=== PATIENT | male | born 1940 | race Caucasian/White ===

== ENCOUNTER → 2017-04-27 | Outpatient (CLI) | payer MEDICARE ==
[2017-04-27 17:08] LABS: Blood Urea Nitrogen 18 mg/dL (9-20); Non-African American GFR(MDRD) >60 (>60 ml/min/1.73 sqM)
--- NOTE | 2017-04-27 18:15 | CT ---
EXAMINATION TYPE: CT chest w con DATE OF EXAM: 04/27/2017 COMPARISON: NONE HISTORY: Chest congestion x 3 weeks. Cough and abnormal cxr. CT DLP: 428.30 mGycm. Automated Exposure Control for Dose Reduction was Utilized. TECHNIQUE: CT scan of the thorax is performed following with IV Contrast, patient injected with 100 mL of Omnipaque 300. FINDINGS: LUNGS: The lungs are grossly clear, there is no concerning parenchymal mass or nodule identified. No suspicious groundglass opacity or consolidation is seen bilaterally. There is minimal left basilar li near scarring or atelectasis near diaphragm. There is no pleural effusion or pneumothorax seen. The tracheobronchial tree is patent. MEDIASTINUM: There are no greater than 1 cm hilar or mediastinal lymph nodes. No cardiomegaly or pe ricardial effusion is seen. Coronary artery calcification is present which is noted marker for coron radha artery disease. There is fairly moderate mixed plaque in the descending thoracic aorta. OTHER: Small degree of bilateral gynecomastia is noted. Liver is diffusely low dense suggesting fatty infiltration. There is simple appearing 3.5 cm cyst posterior right hepatic lobe. There is subcentim eter lesion left hepatic lobe on axial image 52 too small to further characterize. There are several simple appearing cysts throughout the visualized left kidney partially imaged. IMPRESSION: No significant acute or chronic pulmonary process.
== END | disposition home or self-care (01) ==
LOC: RADCTMAIN 16:36
PROVIDERS: ATTEND Family Medicine
DX: R05 Cough (principal); R91.8 Other nonspecific abnormal finding of lung field
CPT/HCPCS: 82565; 84520; 71260; 36415; Q9967

== ENCOUNTER → 2020-02-07 | Outpatient (CLI) | payer MEDICARE ==
--- NOTE | 2020-02-07 16:33 | XR ---
EXAMINATION TYPE: XR Hip Complete RT DATE OF EXAM: 02/07/2020 COMPARISON: NONE HISTORY: Pain in right hip TECHNIQUE: Two views of the right hip are obtained. FINDINGS: Two views of right hip show no acute fracture or dislocation. The right hip joint is normal. No osseo us destructive lesions. The overlying soft tissue is unremarkable. IMPRESSION: There is no acute fracture or dislocation in the right hip.
== END | disposition home or self-care (01) ==
LOC: RADXRMAIN 15:13
PROVIDERS: ATTEND Nurse Practitioner Family
DX: M25.552 Pain in left hip (principal)
CPT/HCPCS: 73502

== ENCOUNTER → 2020-06-13 | Outpatient (CLI) | payer MEDICARE ==
--- NOTE | 2020-06-13 16:11 | CONS ---
CONSULTATION DATE OF SERVICE: 06/13/2020 This patient is an 79-year-old gentleman who has been evaluated in the sleep center for possible obstructive sleep apnea-hypopnea syndrome. HISTORY OF PRESENT ILLNESS/SLEEP-WAKE EVALUATION: Patient's usual sleep schedule is from midnight or 1 a.m. until 8 or 8:30 a.m. No problems with falling asleep. No TV in bedroom. Patient usually sleeps on the side or back position. He snores. He wakes up from sleep about 3 times with nocturia, episodes of palpitation, and possibly stops breathing during sleep. In the morning the patient wakes up tired, worries about his sleep, has episodes of anxiety. [place] Sleepiness Scale is 3. PAST MEDICAL HISTORY: His past medical history is positive for hypertension and episodes of palpitations. PAST SURGICAL HISTORY: Laminectomy L4-L5, knee laparoscopic surgery. MEDICATIONS: 1. Tamsulosin 0.4 mg once a day. 2. Amlodipine 10 mg once a day. 3. Losartan 100 mg once a day. 4. Pravastatin 10 mg once a day. 5. Aspirin 325 mg once a day. FAMILY HISTORY: Stroke in his grandfather, diabetes in his grandmother. REVIEW OF SYSTEMS: Multiple awakenings from sleep, tiredness after awakening, episodes of anxiety. PHYSICAL EXAMINATION: GENERAL: A pleasant gentleman without distress. VITAL SIGNS: BP 143/79, HR 66, RR 15, height 5 feet 7-1/2 inches, weight 196. BMI is 30.2. Oxygen saturation at room air 94%. HEENT: PERRLA, EOMI. Evaluation of oropharynx showed tongue protrudes midline. Moderately low position of soft palate. Mallampati II to III. NECK: Supple. No JVD. Thyroid is not palpable. Neck measures 15 inches in circumference. LUNGS: Clear to percussion and to auscultation. Good air exchange. No wheezing or rhonchi. HEART: S1, S2 regular. No murmurs, gallops or rubs. ABDOMEN: Slightly obese. EXTREMITIES: No clubbing or cyanosis. MULE DRIVER: Awake, alert, and oriented X3. Cranial nerves 2 to 7 intact. There is no fasciculation or atrophy. noted. No focal deficits observed. IMPRESSION: 1. Snoring, multiple awakenings from sleep with nocturia, episodes of sleepiness during the day, episodes of palpitations during sleep time, moderately low position of soft palate; obstructive sleep apnea-hypopnea syndrome. 2. Hypertension. 3. Episodes of palpitations. 4. Status post laminectomy, L4-L5. 5. Status post laparoscopic surgery of the knee. 6. Hyperlipidemia. PLAN: 1. Polysomnography for evaluation of patient's breathing during sleep. 2. CPAP/BiPAP titration if sleep study confirms obstructive sleep apnea-hypopnea syndrome. 3. Preferable position during sleep on the side. 4. No driving if patient feels any sleepiness. 5. I will see patient for follow up visit to explain results of testing and following plan. Thank you very much for referring this patient for consultation. Sincerely, Oscar Flanagan MD, PhD, FAASM Diplomat of [employer] [employer] [employer] Benefits Consultant of [facility] [place] MMODL / TAMIKAN: [id number] /
== END | disposition home or self-care (01) ==
LOC: SLEEP 14:18
PROVIDERS: ATTEND Internal Medicine
DX: G47.33 Obstructive sleep apnea (adult) (pediatric) (principal); I10 Essential (primary) hypertension; E78.5 Hyperlipidemia, unspecified; R00.2 Palpitations; Z98.890 Other specified postprocedural states; Z79.82 Long term (current) use of aspirin; Z79.899 Other long term (current) drug therapy; Z79.891 Long term (current) use of opiate analgesic
CPT/HCPCS: 99211

== ENCOUNTER → 2022-05-25 | Outpatient (CLI) | payer MEDICARE ==
[2022-05-25 14:31] LABS: HCT 41.9 % (39.6-50.0); MCH 29.9 pg (27.0-32.0); MCHC 33.4 g/dL (32.0-37.0); MCV 89.3 fL (80.0-97.0); Mean Platelet Volume 11.3 fL (9.5-12.2); NRBC Per 100 WBC 0 /100 WBCS (0.0-0.0); Platelet Count 240 X 10*3/uL (140-440); RBC 4.69 X 10*6/uL (4.40-5.60); RDW 13.2 % (11.5-14.5); WBC 7.33 X 10*3/uL (4.50-10.00)
[2022-05-25 18:28] LABS: African American GFR (CKD) 91.6 (60.0-200.0); Anion Gap 9.7 mmol/L (10.00-18.00); Blood Urea Nitrogen 20.8 mg/dL (9.0-27.0); Carbon Dioxide 28.4 mmol/L (20.0-27.5); Potassium 4.7 mmol/L (3.5-5.5)
== END | disposition home or self-care (01) ==
LOC: LABPAT 10:42
PROVIDERS: ATTEND Internal Medicine Clinical Cardiac Electrophysiology
DX: Z01.812 Encounter for preprocedural laboratory examination (principal); I49.3 Ventricular premature depolarization; I35.8 Other nonrheumatic aortic valve disorders
CPT/HCPCS: 80051; 82565; 84520; 85027

== ENCOUNTER 2022-05-28 10:18 | Day surgery (SDC) | payer MEDICARE ==
[~2022-05-28 10:18] MED LIST: LACTATED RINGERS 1,000 ML IV SCH; SODIUM CHLORIDE 0.9% 1,000 ML IV SCH
[2022-05-28] MEDS ORDERED: MIDAZOLAM 2 MG/2 ML VIAL ONE (13:30)
[2022-05-28] MEDS ORDERED: ISOPROTERENOL 250 MCG/1.25 ML SYR IV ONE (13:30)
[2022-05-28] MEDS ORDERED: fentaNYL (PF) 50 MCG/ML 2 ML AMP ONE (13:30)
[2022-05-28] MEDS ORDERED: KETOROLAC 15 MG/ML 1 ML VIAL ONE (13:30)
[2022-05-28] MEDS ORDERED: PROPOFOL 10 MG/ML 20 ML VIAL IV ONE (13:30)
[2022-05-28] MEDS ORDERED: HEPARIN SODIUM,PORCINE 5,000 UNIT/ML 1 ML VIAL ONE (13:30)
[2022-05-28] MEDS ORDERED: LIDOCAINE 1% INJ 10MG/ML (30 ML VIAL-PF) SQ ONE (14:07)
[2022-05-28] MEDS ORDERED: HEPARIN SODIUM (1,000 UNIT/ML) 1,000 UNIT in SODIUM CHLORIDE 0.9% 1,000 ML IRRIGATION ONE (14:30)
[2022-05-28] MEDS ORDERED: NITROGLYCERIN OINT 1 INCH/GM PACKET TOPICAL ONE (14:37)
[2022-05-28] MEDS ORDERED: IOPAMIDOL-370 50ML BTL INJ ONE (16:16)
[2022-05-28] MEDS ORDERED: LACTATED RINGERS 1,000 ML IV ONE (16:31)
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
[2022-05-28] MEDS ORDERED: ACETAMINOPHEN TAB 325 MG TAB PO PRN (16:39)
[2022-05-28] MEDS ORDERED: ACETAMINOPHEN IV (For NPO) 1,000 MG in EMPTY BAG 1 BAG IVPB ONE (16:39)
--- NOTE | 2022-05-28 17:01 | P.EPPROC ---
- EP Procedure Note Electrophysiology Procedure Note: Diagnosis Frequent PVCs, high PVC burden of 15-30%, symptomatic Delta waves-like configuration at the onset of greater than 50% of the QRS QRS width 140 ms Left bundle branch block morphology with Transition between V1-V2 Normal stress test, normal LV size and function, mild aortic stenosis Final diagnosis Frequent PVCs from deep mid myocardium very close to the His bundle area Detailed mapping of the right side of the septum and His bundle and right bundle area Detailed mapping of the aortic root including the right coronary and noncoronary cusps Detailed mapping of the LVOT Mapping of the anterior interventricular vein at its origin High risk of AV block at the site, no ablation performed Details Patient was brought to the EP lab in a fasting state. Written informed consent was obtained prior to the procedure Patient was experiencing frequent PVCs He was lightly sedated and venous and arterial accesses were obtained in both groins Femoral artery sheath was placed. Venous sheaths were placed in the right and left femoral veins Hemodynamic monitoring was performed through the procedure Diagnostic catheters mapping catheters were placed in the high right atrium, His bundle, coronary sinus, anterior interventricular vein, right ventricle Mapping Catheters were also placed in the left ventricle, outflow tract as well as aortic cusps specifically the noncoronary in the right coronary cusps IV heparin administered Intracardiac echo was performed 3-DMapping was performed The PVCs were mapped PVC morphology was as follows: Left bundle branch block morphology with transition in V2 and a delta waves-like configuration in all precordial leads Positive in II, biphasic in lead 3, negative in aVR, positive in aVL and upright in aVF The earliest PVC site was mapped to the His bundle area on both sides of the septum Sometimes the earliest site was in the left side and at other times it was in the right side Pace mapping at the site had a very poor match of only 50% consistent with a deep myocardial focus in the His bundle area with poor pace maps endocardially Pentaray catheter was placed in the aorta and the aortic root The noncoronary cusp in the right cusps were mapped. The PVC electrograms was late Pentaray catheter was then placed in the LVOT area The PVC originated from the His bundle area and sometimes would be early from the right side, at least 20 ms from the onset of the QRS At other times the left-sided PVC area was earliest site This was consistent with a deep myocardial focus as was suggested on the twelve- lead EKG with exit sometimes on the right side and exit sometimes of the left- sided The endocardial pace maps was suboptimal consistent with the deep focus Junctional beats, HIS extrasystole with a right bundle branch block morphology were noted intermittently Isuprel was infused at high output, and then withdrawn Isuprel suppressed the arrhythmia but PVCs came back during recovery Sedation suppressed the PVCs and therefore he was kept awake for most of the procedure Sinus cycle length 10-5 ms, MD interval 290 ms, QRS 104 ms, QT interval 442 ms AH 82 ms and HV interval 35 ms Sinus node recovery times at 600, 504 100 ms were 1061, 1055 and 1199 ms. VA Wenckebach block 600 ms at baseline AV node Wenckebach block 310 ms Slow pathway noted antegradely at 380 ms, no inducible SVT On Isuprel, VA Wenckebach block improved to 300 ms AV node Wenckebach block at 310 ms with evidence of antegrade slow pathway conduction but without induction of AV connie reentry Sheaths removed Vascade closure for the venous access sites Angio-Seal for the femoral artery site
[2022-05-28] MEDS ORDERED: HYDROmorphone 0.5 MG/0.5 ML SYRINGE IVP PRN (18:06)
[2022-05-28] MEDS: ASPIRIN 81 MG PO SCH (20:50)
[2022-05-28] MEDS: FLECAINIDE 50 MG TAB PO SCH (20:50)
[2022-05-28] MEDS ORDERED: LOSARTAN 50 MG TAB PO SCH (21:00)
[2022-05-29 07:25] VITALS: BP 136/85; PULSE 63; RESP 20; TEMP 98.2
--- NOTE | 2022-05-29 08:12 | P.EPPROC ---
- EP Procedure Note Electrophysiology Procedure Note: Patient is doing well. His blood pressure is well controlled. No chest discomfort dizziness or lightheadedness He has no groin discomfort On examination his blood pressure is normal Groin is healed well no hematoma Heart sounds S1 and S2 are normal Ejection systolic murmur, soft Lungs are clear no rhonchi no crackles Bilateral lower extremity edema, right greater than left, patient or amlodipine Impression Very frequent PVCs the high PVC burden with a delta wave-like configuration con sistent with a deep focus These PVCs mapped to the mid left ventricular myocardium, deep focus virtually on the His bundle The right side and the left side of the septum the mapped The aortic cusp was mapped, specific in the noncoronary cusp This was a deep focus based on pace mapping and activation mapping, likely on the septum just below the His bundle In future one option could be mechanical ablation with a left bundle screw-in lead At this time we will start flecainide 50 mrem twice daily He has an underlying right bundle branch block and a mildly prolonged [place] interval and we will watch for any bradycardia arrhythmias and for efficacy Urine go home today in follow-up with us in a week Follow-up Holter monitor will be ordered as an outpatient
--- NOTE | 2022-05-29 08:20 | P.DS ---
Providers Attending physician: Mor Wills Primary care physician: [facility] Course: Patient is doing well with her was blood pressure is still elevated Attending examination is normal No JVD Normal heart sounds are regular Breath sounds are clear Basic site is healed well line minimal soakage Impression Complete heart block with severe bradycardia Biventricular pacemaker with left bundle pacing Today's twelve-lead EKG shows a QRS of 150 ms right bundle branch block morpholo gy, QRS pattern At lower outputs, a typical right bundle branch block is seen Backup RV pacing Hemoglobin 13.6 BUN 34 and creatinine 1.44 Saline IV today, likely hypoperfusion with severe bradycardia Start lisinopril 20 mg by mouth daily for hypertension management Follow-up with Dr. Florence in a week Follow-up blood pressure and renal function on lisinopril Plan - Discharge Summary Discharge Rx Participant: No New Discharge Prescriptions: New RX: Flecainide [Tambocor] 50 mg PO Q12HR #180 tablet No Action Aspirin EC [Ecotrin Low Dose] 81 mg PO BID Triamterene/Hydrochlorothiazid [Triamterene-Hctz 37.5-25 mg Tb] 1 tab PO DAILY Tamsulosin [Flomax] 0.4 mg PO DAILY amLODIPine [Norvasc] 10 mg PO DAILY RX: Losartan Potassium 100 mg PO HS Discharge Medication List Aspirin EC [Ecotrin Low Dose] 81 mg PO BID 12/15/21 [History] RX: Losartan Potassium 100 mg PO HS 12/15/21 [History] Tamsulosin [Flomax] 0.4 mg PO DAILY 12/15/21 [History] Triamterene/Hydrochlorothiazid [Triamterene-Hctz 37.5-25 mg Tb] 1 tab PO DAILY 12/15/21 [History] amLODIPine [Norvasc] 10 mg PO DAILY 12/15/21 [History] RX: Flecainide [Tambocor] 50 mg PO Q12HR #180 tablet 05/28/22 [Rx] Follow up Appointment(s)/Referral(s): Mor Wills MD [STAFF PHYSICIAN] - 1 Week (Follow-up with Carlota Caballero in a week Flecainide 50 mg twice daily in addition to other medications) Activity/Diet/Wound Care/Special Instructions: Post EP study - Ablation instructions 1. Keep access sites dry for 2 days. 2. No heavy lifting or straining for 2 days. 3. Avoid bending the hips repeatedly for 2 days. 4. You may go up and down stairs slowly Call if the following is noted 1. Bleeding, increasing swelling or pain at the access sites. 2. Increasing chest discomfort, especially upon taking a deep breath. 3. Increasing shortness of breath, at rest or with exertion. 4. Undue cough / phlegm 5. Difficulty or pain while swallowing. 6. Pain or change in color in the extremities. 7. Fever, chills, rigors. 8. Increasing headache or neurologic symptoms. 9. Dizziness, fainting, palpitations Discharge Disposition: HOME SELF-CARE
[2022-05-29] MEDS: FLECAINIDE 50 MG TAB PO SCH (08:27)
[2022-05-29] MEDS: ASPIRIN 81 MG PO SCH (08:27)
[2022-05-29] MEDS ORDERED: amLODIPine 10 MG TAB PO SCH (09:00)
[2022-05-29] MEDS ORDERED: TRIAMTERENE-HCTZ 37.5-25MG 1 EACH TAB PO SCH (09:00)
[2022-05-29] MEDS ORDERED: TAMSULOSIN 0.4 MG CAP.ER.24H PO SCH (09:00)
[2022-05-29 09:27] LABS: ALT 17 U/L (10-49); AST 22 U/L (14-35); African American GFR (CKD) 80.3 (60.0-200.0); Albumin 4.2 g/dL (3.8-4.9); Alkaline Phosphatase 78 U/L (41-126); Blood Urea Nitrogen 15.3 mg/dL (9.0-27.0); Chloride 101 mmol/L (96-109); Glucose 107 mg/dL (70-110); Non-African American GFR(CKD) 69.3 (60.0-200.0); Potassium 4.2 mmol/L (3.5-5.5); Sodium 137 mmol/L (135-145); Total Protein 6.2 g/dL (6.2-8.2)
== END 2022-05-29 10:04 | disposition home or self-care (01) ==
LOC: CATHEP 10:18 → 6NMEDSUR 16:09 → CATHEP 05-29 10:04
PROVIDERS: ATTEND Internal Medicine Clinical Cardiac Electrophysiology
DX: R00.2 Palpitations (principal); I10 Essential (primary) hypertension; I35.0 Nonrheumatic aortic (valve) stenosis; E78.5 Hyperlipidemia, unspecified; I44.2 Atrioventricular block, complete; R07.89 Other chest pain; Z79.899 Other long term (current) drug therapy; Z85.828 Personal history of other malignant neoplasm of skin; Z86.16 Personal history of COVID-19
CPT/HCPCS: 93623; 93620; 80053; 84443; 83735; C1759; C1760 ×2; C1894; C1769 ×2; C1730 ×3; C1731; J2250; J1644 ×2; J2001; J3010; J1885; J2704; J1170; Q9967

== ENCOUNTER 2023-01-03 11:05 | Inpatient (IN) | payer MEDICARE ==
[2023-01-03] MEDS ORDERED: SODIUM CHLORIDE 0.9% 500 ML 500 ML IV STA (11:29)
--- NOTE | 2023-01-03 11:35 | ED ---
General Adult HPI - General Chief complaint: Shortness of Breath Stated complaint: SOB Time Seen by Provider: 01/03/23 11:25 Source: patient, RN notes reviewed, old records reviewed Mode of arrival: ambulatory Limitations: no limitations - History of Present Illness Initial comments: This is a 82-year-old male presents emergency department stating that he is feeling more short of breath especially with exertion. Patient states she also notices pulses upper abdominal 150. Patient states she has a history of a slow heartbeat but not a fast heartbeat. Patient denies any chest pain. Patient denies any discomfort is just. Patient denies any recent fever chills or cough. Patient states he is on flecainide. Patient denies any abdominal pain patient denies nausea vomiting. - Related Data Home Medications Medication Instructions Recorded Confirmed Aspirin EC [Ecotrin Low Dose] 81 mg PO BID 12/15/21 05/28/22 Losartan Potassium 100 mg PO HS 12/15/21 05/28/22 Tamsulosin [Flomax] 0.4 mg PO DAILY 12/15/21 05/28/22 Triamterene/Hydrochlorothiazid 1 tab PO DAILY 12/15/21 05/28/22 [Triamterene-Hctz 37.5-25 mg Tb] amLODIPine [Norvasc] 10 mg PO DAILY 12/15/21 05/28/22 Previous Rx's Medication Instructions Recorded Flecainide [Tambocor] 50 mg PO Q12HR #180 tablet 05/28/22 Allergies Allergy/AdvReac Type Severity Reaction Status Date / Time acetaminophen AdvReac Unknown Verified 01/03/23 11:10 [From Tylenol-Codeine #3] codeine AdvReac Unknown Verified 01/03/23 11:10 [From Tylenol-Codeine #3] morphine AdvReac Itching Verified 01/03/23 11:10 Review of Systems ROS Statement: Those systems with pertinent positive or pertinent negative responses have been documented in the HPI. ROS Other: All systems not noted in ROS Statement are negative. Past Medical History Past Medical History: Atrial Flutter Additional Past Medical History / Comment(s): PVCs History of Any Multi-Drug Resistant Organisms: None Reported Past Surgical History: No Surgical Hx Reported Past Psychological History: No Psychological Hx Reported Smoking Status: Never smoker Past Alcohol Use History: Unable to Obtain Past Drug Use History: Unable to Obtain General Exam - General Exam Comments Initial Comments: GENERAL: Patient is well-developed and well-nourished. Patient is nontoxic and well- hydrated and is in mild distress. ENT: Neck is soft and supple. No significant lymphadenopathy is noted. Oropharynx is clear. Moist mucous membranes. Neck has full range of motion without eliciting any pain. EYES: The sclera were anicteric and conjunctiva were pink and moist. Extraocular movements were intact and pupils were equal round and reactive to light. Eyelids were unremarkable. PULMONARY: Unlabored respirations. Good breath sounds bilaterally. No audible rales rho nchi or wheezing was noted. CARDIOVASCULAR: Patient's heart rate is about 160 beats a minute and irregular. ABDOMEN: Soft and nontender with normal bowel sounds. SKIN: Skin is clear with no lesions or rashes and otherwise unremarkable. NEUROLOGIC: Patient is alert and oriented x3. Cranial nerves II through XII are grossly intact. Motor and sensory are also intact. Normal speech, volume and content. Symmetrical smile. MUSCULOSKELETAL: Normal extremities with adequate strength and full range of motion. No lower extremity swelling or edema. No calf tenderness. LYMPHATICS: No significant lymphadenopathy is noted PSYCHIATRIC: Normal psychiatric evaluation. Limitations: no limitations Course Vital Signs 01/03/23 11:07 Temperature 97.5 F L Pulse Rate 71 Respiratory 20 Rate Blood Pressure 102/70 O2 Sat by Pulse 99 Oximetry Medical Decision Making - Medical Decision Making EKG was interpreted by myself it shows a sinus tachycardia at 1 25 bpm MI interval is on a 65 QRS is under QT interval 333 QTC is 47. Patient's EKG shows some slight ST segment elevation inferiorly. Dr. Perez was sent the EKG for review. Second EKG was done because the patient's heart rate was faster and appeared to be irregular EKG was interpreted by myself shows atrial fibrillation with rapid ventricular response at 150 bpm QRS is 166 QT interval 340 QTC is 426. Patient's EKG shows a right bundle branch block Was pt. sent in by a medical professional or institution (, [facility], [facility], urgent care, hospital, or jail...) When possible be specific @ -[No] Did you speak to anyone other than the patient for history (EMS, parent, family, police, friend...)? What history was obtained from this source @ -[No] Did you review nursing and triage notes (agree or disagree)? Why? @ -[I reviewed and agree with nursing and triage notes] Were old charts reviewed (outside hosp., previous admission, EMS record, old EK G, old radiological studies, urgent care reports/EKG's, jail records)? Report findings @ -I reviewed prior EKGs prior lab work and Parkinson's patient Differential Diagnosis (chest pain, altered mental status, abdominal pain women, abdominal pain men, vaginal bleeding, weakness, fever, dyspnea, syncope, headache, dizziness, GI bleed, back pain, seizure, CVA, palpatations, mental health, musculoskeletal)? @ -Differential Dyspnea: Coronary syndrome, arrhythmia, tamponade, asthma, COPD, pulmonary embolism, pneumonia, pneumothorax, pulmonary effusion, anaphylaxis, diabetic ketoacidosis, flailed chest, pulmonary contusion, diaphragmatic rupture, anemia, neuromuscular, this is not meant to be an all-inclusive list. EKG interpreted by me (3pts min.). @ -[As above] X-rays interpreted by me (1pt min.). @ -Chest x-ray shows no acute abnormality CT interpreted by me (1pt min.). @ -[None done] U/S interpreted by me (1pt. min.). @ -[None done] What testing was considered but not performed or refused? (CT, X-rays, U/S, labs)? Why? @ -[None] What meds were considered but not given or refused? Why? @ -[None] Did you discuss the management of the patient with other professionals (pro fessionals i.e. , PA, [facility], lab, RT, psych nurse, social worker assistant, member of the legislative council, teacher, defence force senior officer, case monitor)? Give summary @ -Poke with Dr. Perez he saw the EKGs and wanted the patient started on amiodarone and gave the patient amiodarone bolus of 150 and then put the patient on amiodarone drip and started the patient on heparin. I spoke with Dr. Spears he agreed to admit the patient I admitted the patient remaining orders I consulted cardiology Was smoking cessation discussed for >3mins.? @ -[No] Was critical care preformed (if so, how long)? @ -35 Minutes Were there social determinants of health that impacted care today? How? (Homelessness, low income, unemployed, alcoholism, drug addiction, transportation, low edu. Level, literacy, decrease access to med. care, alf, rehab)? @ -[No] Was there de-escalation of care discussed even if they declined (Discuss DNR or withdrawal of care, Hospice)? DNR status @ -[No] What co-morbidities impacted this encounter? (DM, HTN, Smoking, COPD, CAD, Cancer, CVA, ARF, Chemo, Hep., AIDS, mental health diagnosis, sleep apnea, morbid obesity)? @ -[None] Was patient admitted / discharged? Hospital course, mention meds given and route, prescriptions, significant lab abnormalities, going to OR and other pertinent info. @ -Patient came in with atrial fibrillation with rapid ventricular response at the patient amiodarone and amiodarone drip after I spoke with Dr. Perez. I spoke with Dr. Spears he agreed to admit the patient admitted the patient I started the patient heparin as well as I consulted cardiology. Undiagnosed new problem with uncertain prognosis? @ -[No] Drug Therapy requiring intensive monitoring for toxicity (Heparin, Nitro, Insulin, Cardizem)? @ -[No] Were any procedures done? @ -[No] Diagnosis/symptom? @ -Atrial fibrillation with rapid ventricular response Acute, or Chronic, or Acute on Chronic? @ -Acute Uncomplicated (without systemic symptoms) or Complicated (systemic symptoms)? @ -Complicated Side effects of treatment? @ -[No] Exacerbation, Progression, or Severe Exacerbation? @ -[No] Poses a threat to life or bodily function? How? (Chest pain, [place], [place], pneumonia, PE, COPD, DKA, ARF, appy, cholecystitis, CVA, Diverticulitis, Homicidal, Suicidal, threat to staff... and all critical care pts) @ -Yes this can lead to poor perfusion and end organ dysfunction - Lab Data Result diagrams: 01/03/23 11:34 01/03/23 11:34 Lab Results 01/03/23 01/03/23 01/03/23 Range/Units 11:34 11:34 11:34 WBC 9.1 (3.8-10.6) k/uL RBC 5.54 (4.30-5.90) m/uL Hgb 16.3 (13.0-17.5) gm/dL Hct 48.1 (39.0-53.0) % MCV 86.7 (80.0-100.0) fL MCH 29.4 (25.0-35.0) pg MCHC 33.9 (31.0-37.0) g/dL RDW 13.6 (11.5-15.5) % Plt Count 247 (150-450) k/uL MPV 8.1 Neutrophils % 73 % Lymphocytes % 18 % Monocytes % 5 % Eosinophils % 2 % Basophils % 1 % Neutrophils # 6.6 (1.3-7.7) k/uL Lymphocytes # 1.6 (1.0-4.8) k/uL Monocytes # 0.5 (0-1.0) k/uL Eosinophils # 0.2 (0-0.7) k/uL Basophils # 0.0 (0-0.2) k/uL PT 10.3 (9.0-12.0) sec INR 1.0 (<1.2) APTT 23.4 (22.0-30.0) sec D-Dimer 0.60 H (<0.60) mg/L FEU Sodium 137 (137-145) mmol/L Potassium 4.1 (3.5-5.1) mmol/L Chloride 100 (98-107) mmol/L Carbon Dioxide 22 (22-30) mmol/L Anion Gap 15 mmol/L BUN 34 H (9-20) mg/dL Creatinine 1.33 H (0.66-1.25) mg/dL Est GFR (CKD-EPI)AfAm 57 (>60 ml/min/1.73 sqM) Est GFR (CKD-EPI)NonAf 49 (>60 ml/min/1.73 sqM) Glucose 136 H (74-99) mg/dL Plasma Lactic Acid Christopher (0.7-2.0) mmol/L Calcium 10.1 (8.4-10.2) mg/dL Magnesium 2.2 (1.6-2.3) mg/dL Total Bilirubin 0.8 (0.2-1.3) mg/dL AST 40 (17-59) U/L ALT 28 (4-49) U/L Alkaline Phosphatase 65 (38-126) U/L Troponin I (0.000-0.034) ng/mL Total Protein 7.7 (6.3-8.2) g/dL Albumin 4.8 (3.5-5.0) g/dL 01/03/23 01/03/23 Range/Units 11:34 11:34 WBC (3.8-10.6) k/uL RBC (4.30-5.90) m/uL Hgb (13.0-17.5) gm/dL Hct (39.0-53.0) % MCV (80.0-100.0) fL MCH (25.0-35.0) pg MCHC (31.0-37.0) g/dL RDW (11.5-15.5) % Plt Count (150-450) k/uL MPV Neutrophils % % Lymphocytes % % Monocytes % % Eosinophils % % Basophils % % Neutrophils # (1.3-7.7) k/uL Lymphocytes # (1.0-4.8) k/uL Monocytes # (0-1.0) k/uL Eosinophils # (0-0.7) k/uL Basophils # (0-0.2) k/uL PT (9.0-12.0) sec INR (<1.2) APTT (22.0-30.0) sec D-Dimer (<0.60) mg/L FEU Sodium (137-145) mmol/L Potassium (3.5-5.1) mmol/L Chloride (98-107) mmol/L Carbon Dioxide (22-30) mmol/L Anion Gap mmol/L BUN (9-20) mg/dL Creatinine (0.66-1.25) mg/dL Est GFR (CKD-EPI)AfAm (>60 ml/min/1.73 sqM) Est GFR (CKD-EPI)NonAf (>60 ml/min/1.73 sqM) Glucose (74-99) mg/dL Plasma Lactic Acid Christopher 1.3 (0.7-2.0) mmol/L Calcium (8.4-10.2) mg/dL Magnesium (1.6-2.3) mg/dL Total Bilirubin (0.2-1.3) mg/dL AST (17-59) U/L ALT (4-49) U/L Alkaline Phosphatase (38-126) U/L Troponin I 0.020 (0.000-0.034) ng/mL Total Protein (6.3-8.2) g/dL Albumin (3.5-5.0) g/dL Critical Care Time Critical Care Time: Yes Total Critical Care Time: 35 Disposition Clinical Impression: Atrial fibrillation with rapid ventricular response Disposition: ADMITTED IP TO THIS HOSP Referrals: Staci Gongora MD [REFERRING] - 1-2 days Time of Disposition: 14:20
[2023-01-03 11:47] LABS: Basophils % (A) 1 %; Eosinophils # (A) 0.2 k/uL (0-0.7); Eosinophils % (A) 2 %; HCT 48.1 % (39.0-53.0); HGB 16.3 gm/dL (13.0-17.5); Lymphocytes # (A) 1.6 k/uL (1.0-4.8); Lymphocytes % (A) 18 %; MCH 29.4 pg (25.0-35.0); MCHC 33.9 g/dL (31.0-37.0); MCV 86.7 fL (80.0-100.0); Mean Platelet Volume 8.1; Monocytes # (A) 0.5 k/uL (0-1.0); Monocytes % (A) 5 %; Neutrophils # (A) 6.6 k/uL (1.3-7.7); Neutrophils % (A) 73 %; Platelet Count 247 k/uL (150-450); RBC 5.54 m/uL (4.30-5.90); RDW 13.6 % (11.5-15.5); WBC 9.1 k/uL (3.8-10.6)
[2023-01-03 12:00] LABS: ALT 28 U/L (4-49); African American GFR (CKD) 57 (>60 ml/min/1.73 sqM); Anion Gap 15 mmol/L; Blood Urea Nitrogen 34 mg/dL (9-20); Calcium 10.1 mg/dL (8.4-10.2); Carbon Dioxide 22 mmol/L (22-30); Chloride 100 mmol/L (98-107); Glucose 136 mg/dL (74-99); Non-African American GFR(CKD) 49 (>60 ml/min/1.73 sqM); Sodium 137 mmol/L (137-145); Total Bilirubin 0.8 mg/dL (0.2-1.3)
[2023-01-03 12:01] LABS: Potassium 4.1 mmol/L (3.5-5.1)
[2023-01-03 12:02] LABS: AST 40 U/L (17-59); Albumin 4.8 g/dL (3.5-5.0); Alkaline Phosphatase 65 U/L (38-126); Magnesium 2.2 mg/dL (1.6-2.3); Total Protein 7.7 g/dL (6.3-8.2)
--- NOTE | 2023-01-03 12:12 | XR ---
EXAMINATION TYPE: XR chest 2V DATE OF EXAM: 01/03/2023 COMPARISON: None HISTORY: 82 year-old male shortness of breath, difficulty breathing TECHNIQUE: AP and lateral views FINDINGS: Heart upper limits of normal in size. Atherosclerotic arch calcifications. Pulmonary vasculature with in normal limits. No consolidation or pleural effusion. IMPRESSION: Borderline heart size. No acute cardiopulmonary process.
[2023-01-03 12:16] LABS: Partial Thromboplastin Time 23.4 sec (22.0-30.0); Prothrombin Time 10.3 sec (9.0-12.0)
[2023-01-03] MEDS ORDERED: DEXTROSE 5% IN WATER 100 ML with AMIODARONE 150 MG IV ONE (12:18)
[2023-01-03] MEDS ORDERED: AMIODARONE 360 MG in DEXTROSE 5% IN WATER 200 ML IV ONE ×2 (12:19)
[2023-01-03] MEDS ORDERED: HEPARIN SODIUM 1,000 UN/ML (10ML VL) IV ONE (14:02)
[2023-01-03] MEDS ORDERED: HEPARIN SOD,PORK IN 0.45% NACL 25,000 UNIT in 0.45% NACL 1 250ML.BAG IV SCH (14:15)
[2023-01-03] MEDS ORDERED: SODIUM CHLORIDE 0.9% 1,000 ML IV ONE (14:24)
[2023-01-03] MEDS ORDERED: ONDANSETRON 4 MG/2 ML VIAL IVP PRN (16:23)
[2023-01-03] MEDS ORDERED: LORazepam 0.5 MG TAB PO PRN (16:23)
[2023-01-03] MEDS ORDERED: ACETAMINOPHEN TAB 325 MG TAB PO PRN (16:23)
[2023-01-03] MEDS ORDERED: MELATONIN 3 MG TABLET PO PRN (16:23)
[2023-01-03] MEDS ORDERED: NALOXONE 0.4 MG/ML 1 ML VIAL IV PRN (16:23)
--- NOTE | 2023-01-03 16:35 | P.HPIM ---
History of Present Illness H&P Date: 01/03/23 Chief Complaint: Heart racing This is a pleasant 82-year-old patient who follows with Dr. Chavez. 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 Chronic stable medical conditions include osteo-arthritis, hypertension, BPH,. Patient the past as a symptomatic frequent PVCs. May 2022 was attempted ablation by Dr. Mor Yen. Not successful. Patient since then has been on flecainide. This morning patient really became dizzy and weak with no palpitations. Took his pulse could not for the same. Decided to come to the ER. EKG showed atrial flutter/fibrillation with a rapid ventricular rate. Was started on IV heparin and IV amiodarone the ER. Cartilage was consulted. Patient's son and at the bedside. Review of systems: GEN.: Tired EYES: None HEENT: None NECK: None RESPIRATORY: As above CARDIOVASCULAR: As above GASTROINTESTINAL: None GENITOURINARY: None MUSCULOSKELETAL: Joint pains LYMPHATICS: None HEMATOLOGICAL: None PSYCHIATRY: None NEUROLOGICAL: None Past medical history to include: Symptomatic PVCs, atrial flutter, hypertension, BPH Social history: . No smoking or alcohol. Physical examination: VITAL SIGNS: 97.5, 71, 20, 102/70, 99% room air GENERAL: BMI 30.9, declining in bed slightly short of breath. EYES: Pupils equal. Conjunctiva normal. HEENT: External appearance of nose and ears normal, oral cavity grossly normal. NECK: JVD not raised; masses not palpable. HEART: Sounds regular; no edema. LUNGS: Respiratory rate normal; clear to auscultation. ABDOMEN: Soft, nontender, liver spleen not palpable, no masses palpable. PSYCH: Alert and oriented x3; mood and affect normal. MUSCULOSKELETAL:No Clubbing/cyanosis;muscles-grossly intact. OA NEUROLOGICAL: Cranial nerves grossly intact; no facial asymmetry, power and sensation grossly intact. LYMPHATICS: No lymph nodes palpable in the axilla and neck INVESTIGATIONS, reviewed in the clinical context: White count 9.1 hemoglobin sitting 0.3 platelets 247 sodium 137 potassium 4.1 BUN 34 creatinine 1.33 Troponin I 0.20 EKG tracing personally reviewed by me-atrial fibrillation. Right bundle branch block pattern Chest x-ray film personally reviewed by me-unremarkable Assessment and plan: -New onset of atrial fibrillation with rapid ventricular rate. IV heparin. IV amiodarone. Cardiology consulted. -BMI 30.9 Weight loss measures -Essential hypertension Currently blood pressure running low because of rapid rate. Hold off anti- hypertensives -BPH Flomax -IV heparin monitoring Follow PTT Care was discussed with the patient and the and the son at the bedside. Questions answered. Cardiac consulted. Check thyroid function Past Medical History Past Medical History: Atrial Flutter Additional Past Medical History / Comment(s): PVCs History of Any Multi-Drug Resistant Organisms: None Reported Past Surgical History: No Surgical Hx Reported Past Psychological History: No Psychological Hx Reported Smoking Status: Never smoker Past Alcohol Use History: Unable to Obtain Past Drug Use History: Unable to Obtain Medications and Allergies Home Medications Medication Instructions Recorded Confirmed Type Losartan Potassium 100 mg PO HS 12/15/21 01/03/23 History Tamsulosin [Flomax] 0.4 mg PO DAILY 12/15/21 01/03/23 History Triamterene/Hydrochlorothiazid 1.5 tab PO DAILY 12/15/21 01/03/23 History [Triamterene-Hctz 37.5-25 mg Tb] amLODIPine [Norvasc] 10 mg PO DAILY 12/15/21 01/03/23 History Aspirin 81.25 mg PO BID 01/03/23 01/03/23 History Flecainide [Tambocor] 25 mg PO Q12HR 01/03/23 01/03/23 History Allergies Allergy/AdvReac Type Severity Reaction Status Date / Time codeine AdvReac Nausea, Verified 01/03/23 14:52 [From Tylenol-Codeine #3] vomiting, dizziness morphine AdvReac Itching of Verified 01/03/23 14:52 lips/mouth Physical Exam Vitals: Vital Signs Temp Pulse Resp BP Pulse Ox 01/03/23 11:07 97.5 F L 71 20 102/70 99 Intake and Output 01/03/23 01/03/23 01/03/23 06:59 14:59 22:59 Other: Weight 92.079 kg Results CBC & Chem 7: 01/03/23 11:34 01/03/23 11:34 Labs: Abnormal Lab Results - Last 24 Hours (Table) 01/03/23 01/03/23 Range/Units 11:34 11:34 D-Dimer 0.60 H (<0.60) mg/L FEU BUN 34 H (9-20) mg/dL Creatinine 1.33 H (0.66-1.25) mg/dL Glucose 136 H (74-99) mg/dL
[2023-01-03] MEDS: AMIODARONE 450 MG in DEXTROSE 5% IN WATER 250 ML IV SCH ×2 (18:32)
[2023-01-03] MEDS: ASPIRIN 81 MG PO SCH (20:09)
[2023-01-03] MEDS ORDERED: FLECAINIDE 50 MG TAB PO SCH (21:00)
[2023-01-04] MEDS: AMIODARONE 450 MG in DEXTROSE 5% IN WATER 250 ML IV SCH ×2 (04:12)
[2023-01-04 08:22] VITALS: RESP 17
[2023-01-04] MEDS: ASPIRIN 81 MG PO SCH (08:48)
[2023-01-04] MEDS ORDERED: TAMSULOSIN 0.4 MG CAP.ER.24H PO SCH (09:00)
[2023-01-04] MEDS ORDERED: FLECAINIDE 50 MG TAB PO SCH (10:30)
[2023-01-04] MEDS ORDERED: APIXABAN 5 MG TAB PO SCH (10:45)
[2023-01-04] MEDS ORDERED: amLODIPine 5 MG TAB PO SCH (10:45)
--- NOTE | 2023-01-04 10:57 | P.CRDCN ---
History of Present Illness History of present illness: HISTORY OF PRESENT ILLNESS: This is a 82-year-old male with a past medical history significant for PVCs, hypertension, carotid arthrosclerosis, and mild aortic stenosis. Patient follows in the office with Dr. Wills. We have been asked to see the patient in consul tation for atrial fibrillation. Patient examined at the bedside. Patient states that he underwent an attempted PVC ablation in May 2022. He states he was placed on flecainide afterwards and has been doing well with no issues. He states yesterday he began to feel dizzy and short of breath. He states that he went to take his pulse and it felt very faint and rapid. He denies having any palpitations. Patient presented to the ER for further evaluation. EKG reveals atrial flutter versus atrial fibrillation. He was placed on IV heparin and IV amiodarone. He is maintaining sinus mechanism this morning. * EKG reveals atrial flutter versus atrial fibrillation * Chest xray borderline heart size. No acute cardiopulmonary process. * Laboratory data: WBC 9.1. Hemoglobin 16.3. Platelet count 247. D-dimer 0.60. Sodium 137. Potassium 4.1. BUN 34. Creatinine 1.33. Troponin negative 1. TSH 2.710. * Current home cardiac medications include flecainide 25 mg twice a day, losartan 100 mg at night, aspirin 81.25 mg twice a day, Norvasc 10 mg daily, and Triamterene-hydrochlorothiazide 37.5-25mg daily REVIEW OF SYSTEMS: At the time of my exam: CONSTITUTIONAL: Denies fever or chills. HEENT: Denies blurred vision, vision changes, or eye pain. Denies hemoptysis CARDIOVASCULAR: Denies chest pain. Denies orthopnea. Denies PND. Denies palpitations RESPIRATORY: Denies shortness of breath. GASTROINTESTINAL: Denies abdominal pain. Denies nausea or vomiting. HEMATOLOGIC: Denies bleeding disorders. GENITOURINARY: Denies any blood in urine. SKIN: Denies pruitis. Denies rash. PHYSICAL EXAM: VITAL SIGNS: Reviewed. GENERAL: Well-developed in no acute distress. HEENT: Head is normocephalic. Pupils are equal, round. Sclerae anicteric. Mucous membranes of the mouth are moist. Neck supple. No JVD or thyromegaly LUNGS: Respirations even and unlabored. Lungs essentially clear to auscultation bilaterally. HEART: Regular rate and rhythm. S1 and S2 heard. Systolic murmur noted ABDOMEN: Soft. Nondistended. Nontender. EXTREMITIES: Normal range of motion. No clubbing or cyanosis. Peripheral pulses intact. No lower extremity edema NEUROLOGIC: Awake and alert. Oriented x 3. ASSESSMENT: Dizziness New-onset typical atrial flutter versus atrial fibrillation with RVR, currently maintaining sinus mechanism History of attempted PVC ablation in May 2022 Hypertension Carotid arthrosclerosis Mild aortic stenosis PLAN: Discontinue IV amio and IV heparin Begin Eliquis 5mg BID Resume flecainide at increased dose of 50 mg twice a day Resume amlodipine at a lower dose of 5 mg daily Resume losartan at a decreased dose of 50 mg at night Discontinue Triamterene-hydrochlorothiazide Patient may be discharged home this afternoon and follow up with Dr. Wills on an outpatient basis Nurse practitioner note has been reviewed by physician. Signing provider agrees with the documented findings, assessment, and plan of care. Past Medical History Past Medical History: Atrial Flutter Additional Past Medical History / Comment(s): PVCs. head trauma in 1979 History of Any Multi-Drug Resistant Organisms: None Reported Past Surgical History: No Surgical Hx Reported Past Psychological History: No Psychological Hx Reported Smoking Status: Never smoker Past Alcohol Use History: Unable to Obtain Past Drug Use History: Unable to Obtain - Past Family History Father Family Medical History: Cancer Mother Family Medical History: Cancer Medications and Allergies Home Medications Medication Instructions Recorded Confirmed Type Losartan Potassium 100 mg PO HS 12/15/21 01/03/23 History Tamsulosin [Flomax] 0.4 mg PO DAILY 12/15/21 01/03/23 History Triamterene/Hydrochlorothiazid 1.5 tab PO DAILY 12/15/21 01/03/23 History [Triamterene-Hctz 37.5-25 mg Tb] amLODIPine [Norvasc] 10 mg PO DAILY 12/15/21 01/03/23 History Aspirin 81.25 mg PO BID 01/03/23 01/03/23 History Flecainide [Tambocor] 25 mg PO Q12HR 01/03/23 01/03/23 History Allergies Allergy/AdvReac Type Severity Reaction Status Date / Time codeine AdvReac Nausea, Verified 01/03/23 14:52 [From Tylenol-Codeine #3] vomiting, dizziness morphine AdvReac Itching of Verified 01/03/23 14:52 lips/mouth Physical Exam Vitals: Vital Signs Temp Pulse Pulse Resp BP BP Pulse Ox 01/04/23 04:00 98.3 F 68 18 119/76 94 L 01/04/23 02:00 120 H 18 01/04/23 00:00 120 H 18 105/70 95 01/03/23 20:00 97.9 F 110 H 16 109/66 96 01/03/23 17:16 129 H 17 107/62 97 01/03/23 16:36 98.7 F 129 H 18 115/89 98 01/03/23 16:00 124 H 19 118/103 94 L 01/03/23 15:00 129 H 20 97/76 96 01/03/23 14:00 124 H 18 116/86 94 L 01/03/23 13:00 122 H 18 101/78 95 01/03/23 11:07 97.5 F L 71 20 102/70 99 Intake and Output 01/03/23 01/04/23 01/04/23 22:59 06:59 14:59 Intake Total 174.311 161.114 Output Total 200 750 Balance -25.689 -588.886 Intake: Intake, IV Titration 64.311 161.114 Amount Amiodarone 450 mg In 161.114 Dextrose 5% in Water 250 ml @ 0.5 MG/MIN 16.667 mls/hr IV .Q15H [facility] Rx#: [id number] Heparin Sod,Pork in 0.45% 64.311 NaCl 25,000 unit In 0.45 % NaCl 1 250ml.bag @ 10.8 UNITS/KG/HR 9.945 mls/hr IV .Q24H [facility] Rx#: [id number] Oral 110 Output: Urine 200 750 Other: Weight 92.079 kg Results 01/03/23 11:34 01/03/23 11:34 Cardiac Enzymes 01/03/23 01/03/23 Range/Units 11:34 11:34 AST 40 (17-59) U/L Troponin I 0.020 (0.000-0.034) ng/mL Coagulation 01/03/23 01/03/23 01/04/23 Range/Units 11:34 20:46 04:18 PT 10.3 (9.0-12.0) sec APTT 23.4 38.8 H 51.4 H (22.0-30.0) sec CBC 01/03/23 Range/Units 11:34 WBC 9.1 (3.8-10.6) k/uL RBC 5.54 (4.30-5.90) m/uL Hgb 16.3 (13.0-17.5) gm/dL Hct 48.1 (39.0-53.0) % Plt Count 247 (150-450) k/uL Comprehensive Metabolic Panel 01/03/23 Range/Units 11:34 Sodium 137 (137-145) mmol/L Potassium 4.1 (3.5-5.1) mmol/L Chloride 100 (98-107) mmol/L Carbon Dioxide 22 (22-30) mmol/L BUN 34 H (9-20) mg/dL Creatinine 1.33 H (0.66-1.25) mg/dL Glucose 136 H (74-99) mg/dL Calcium 10.1 (8.4-10.2) mg/dL AST 40 (17-59) U/L ALT 28 (4-49) U/L Alkaline Phosphatase 65 (38-126) U/L Total Protein 7.7 (6.3-8.2) g/dL Albumin 4.8 (3.5-5.0) g/dL Current Medications Generic Name Dose Route Start Last Admin Trade Name Freq PRN Reason Stop Dose Admin Acetaminophen 650 mg 01/03/23 16:23 Acetaminophen Tab 325 Mg Tab PO Q6HR PRN Mild Pain or Fever > 100.5 Aspirin 81 mg 01/03/23 21:00 01/03/23 20:09 Aspirin 81 Mg PO 81 mg BID [facility] Administration Heparin Sodium/Sodium Chloride 250 mls @ 9.945 mls/hr 01/03/23 14:15 01/03/23 21:34 25,000 unit/ Sodium Chloride IV 12.8 units/kg/hr .Q24H [facility] 11.786 mls/hr Titration Protocol 10.8 UNITS/KG/HR Lorazepam 0.5 mg 01/03/23 16:23 Lorazepam 0.5 Mg Tab PO Q6HR PRN Anxiety Melatonin 3 mg 01/03/23 16:23 Melatonin 3 Mg Tablet PO HS PRN Insomnia Naloxone HCl 0.2 mg 01/03/23 16:23 Naloxone 0.4 Mg/Ml 1 Ml Vial IV Q2M PRN Opioid Reversal Ondansetron HCl 4 mg 01/03/23 16:23 Ondansetron 4 Mg/2 Ml Vial IVP Q8HR PRN Nausea And Vomiting Tamsulosin HCl 0.4 mg 01/04/23 09:00 Tamsulosin 0.4 Mg Cap.Er.24h PO DAILY [facility] [place] Intake and Output 01/03/23 01/04/23 01/04/23 22:59 06:59 14:59 Intake Total 174.311 161.114 Output Total 200 750 Balance -25.929 -638.766 Intake: Intake, IV Titration 64.311 161.114 Amount Amiodarone 450 mg In 161.114 Dextrose 5% in Water 250 ml @ 0.5 MG/MIN 16.667 mls/hr IV .Q15H [facility] [place] Rx#: [id number] Heparin Sod,Pork in 0.45% 64.311 NaCl 25,000 unit In 0.45 % NaCl 1 250ml.bag @ 10.8 UNITS/KG/HR 9.945 mls/hr IV .Q24H [facility] [place] Rx#: [id number] Oral 110 Output: Urine 200 750 Other: Weight 92.079 kg 01/03/23 11:34 01/03/23 11:34
[2023-01-04 15:40] VITALS: BP 131/73; PULSE 63; TEMP 97.8
--- NOTE | 2023-01-04 19:07 | P.EPCON ---
Electrophysiology Consult - EP Consult Electrophysiology Consult: This is Dr. Wills dictating an electrophysiology consult on this patient The patient was interviewed and examined IMPRESSION / ASSESSMENT: 82 male patient presenting with sudden onset of shortness of breath and presyncope and palpitations First 12-lead EKG showed an atrial tachycardia, with RVR A subsequent EKG showed degeneration to atrial fibrillation with RVR History of very frequent PVCs in the setting of normal coronary arteries and normal LV function These PVCs originated from the distal His bundle and hence were not tolerated for ablation Instead he was treated with flecainide Therefore his atrial fibrillation occurred on flecainide therapy and was very symptomatic His TSH is normal electrolytes and normal History of hypertension Very mild coronary artery disease with preserved systolic function PLAN: He has now converted to sinus rhythm on the higher dose of flecainide and is awaiting discharge He is also on ELIQUIS now At a detailed discussion with him regarding the management of atrial fibrillation. Since he has already broken through on flecainide I would recommend an EP study and ablation for atrial fibrillation and for atrial tachycardia especially since he is so symptomatically Risks and benefits were discussed He understands the pros and cons of A. fib ablation since his has had 1 before. He has also had a diagnostic EP study in the mapping procedure a few months back himself Defer knee surgery for at least 4 months No operative procedures for the 3 months after A. fib ablation Patient instructed not to stop ELIQUIS before the ablation or for 3 months after the ablation He will hold flecainide for 2 days prior to the procedure HPI Patient was at home and he had a sudden onset of shortness of breath and felt extremely dizzy and strange. He had to sit down because he thought he was passed out. His took his pulse and could not contract since it was going very fast In about 10 minutes or so he felt very uneasy and lightheaded and therefore came to the hospital His first 12-lead EKG in the hospital showed an atrial tachycardia with RVR On telemetry in the ER his heart is "200 beats a minute Subsequently he degenerated into atrial fibrillation has been documented twelve- lead EKG He has been on flecainide for a different reason, for suppression of PVCs that originate in the ventricular muscle close to the distal His bundle Therefore ablation was not performed. Therefore he is had episodes of atrial fibrillation atrial tachycardia on flecainide ROS: No fever chills or rigors, no cough, phlegm or expectoration, no nausea, vomiting or diarrhea, no hematuria, dysuria, no musculoskeletal complaints, no strokes or seizures, no skin lesions. EXAMINATION: Blood pressure 127/76. His mercury pulse rate in the 60s at this time he is in sinus rhythm afebrile Breath sounds are clear no rhonchi no crackles Normal heart sounds normal S1 normal S2 Lying comfortably in bed no orthopnea PND No lower extremity edema REVIEW OF LABS, ECG & MEDICAL DATA normal white count, normal hemoglobin, normal platelet count of 247,000 Normal electrolytes Creatinine 1.3 Normal TSH line normal troponin
--- NOTE | 2023-01-04 20:12 | P.DS ---
Providers Date of admission: 01/03/23 14:24 Expected date of discharge: 01/04/23 Attending physician: Francisco Spears Consults: 01/03/23 14:24 Consult Physician Urgent Consulting Provider: Jeff Perez Consult Reason/Comments: A. 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 Chronic stable medical conditions include osteo-arthritis, hypertension, BPH,. Patient the past as a symptomatic frequent PVCs. May 2022 was attempted ablation by Dr. Mor Yen. Not successful. Patient since then has been on flecainide. This morning patient really became dizzy and weak with no palpitations. Took his pulse could not for the same. Decided to come to the ER. EKG showed atrial flutter/fibrillation with a rapid ventricular rate. Was started on IV heparin and IV amiodarone the ER. Cartilage was consulted. Patient's son and at the bedside. January 04: Patient seen by Dr. Mor Yen from EP. Diagnosed of atrial tachycardia with a rapid rate. Also patient changed to atrial fibrillation. In sinus rhythm this morning. Secondary is being increased to 50 mg twice a day. Amlodipine 5 mg's been added. Diuretic discontinued. Discussed with patient. He'll follow-up with Dr. Odell in a week's time. Patient will likely get a EP study with ablation for atrial fibrillation and atrial tachycardia as an outpatient. Patient on flecainide 2 days prior to the procedure. Otherwise patient feeling well this morning. Past medical history to include: Symptomatic PVCs, atrial flutter, hypertension, BPH Social history: . No smoking or alcohol. Physical examination: VITAL SIGNS: 97.8, 63, 17, 131/73, 96% room air GENERAL: BMI 30.9, declining in bed slightly short of breath. EYES: Pupils equal. Conjunctiva normal. HEENT: External appearance of nose and ears normal, oral cavity grossly normal. NECK: JVD not raised; masses not palpable. HEART: First seconds are normal; no edema. LUNGS: Respiratory rate normal; clear to auscultation. ABDOMEN: Soft, nontender, liver spleen not palpable, no masses palpable. PSYCH: Alert and oriented x3; mood and affect normal. MUSCULOSKELETAL:No Clubbing/cyanosis;muscles-grossly intact. OA INVESTIGATIONS, reviewed in the clinical context: TSH 2.7 White count 9.1 hemoglobin sitting 0.3 platelets 247 sodium 137 potassium 4.1 BUN 34 creatinine 1.33 Troponin I 0.20 EKG tracing personally reviewed by me-atrial fibrillation. Right bundle branch block pattern Chest x-ray film personally reviewed by me-unremarkable Assessment and plan: -Paroxysmal atrial fibrillation with rapid ventricular rate., Back in sinus rhythm Flecainide. 50 mg twice a day. Follow outpatient ablation -Atrial tachycardia with a rapid rate on presentation Flecainide. For outpatient ablation -BMI 30.9 Weight loss measures -Essential hypertension Amlodipine 5 mg daily. Cozaar 50 mg daily at bedtime -Elevated creatinine. Diuretics held. For repeat BMP in 1 week. -BPH Flomax -IV heparin monitoring Follow PTT Disposition: Home Labs: BMP in 1 week Plan - Discharge Summary Discharge Rx Participant: No New Discharge Prescriptions: New Losartan [Cozaar] 50 mg PO HS #90 tab Apixaban [Eliquis] 5 mg PO BID #60 tab amLODIPine [Norvasc] 5 mg PO DAILY #90 tab Flecainide [Tambocor] 50 mg PO Q12HR #180 tab Continue Tamsulosin [Flomax] 0.4 mg PO DAILY Discontinued Triamterene/Hydrochlorothiazid [Triamterene-Hctz 37.5-25 mg Tb] 1.5 tab PO DAILY Aspirin 81.25 mg PO BID amLODIPine [Norvasc] 10 mg PO DAILY Losartan Potassium 100 mg PO HS Flecainide [Tambocor] 25 mg PO Q12HR Discharge Medication List Tamsulosin [Flomax] 0.4 mg PO DAILY 12/15/21 [History] Apixaban [Eliquis] 5 mg PO BID #60 tab 01/04/23 [Rx] Flecainide [Tambocor] 50 mg PO Q12HR #180 tab 01/04/23 [Rx] Losartan [Cozaar] 50 mg PO HS #90 tab 01/04/23 [Rx] amLODIPine [Norvasc] 5 mg PO DAILY #90 tab 01/04/23 [Rx] Follow up Appointment(s)/Referral(s): Mor Wills MD [STAFF PHYSICIAN] - 1 Week (Wednesday, January 11 11:15) Mendel Chavez MD [Primary Care Provider] - 1 Week (January 12, 11:00) Patient Instructions/Handouts: A-fib (Atrial Fibrillation) (DC) Discharge Disposition: HOME SELF-CARE
[2023-01-04] MEDS ORDERED: LOSARTAN 50 MG TAB PO SCH (21:00)
[2023-01-04] MEDS ORDERED: NON FORMULARY DRUG (Losartan Potassium [Losartan Potassium] 100 MG Tablet) PO SCH (21:00)
[2023-01-05] MEDS ORDERED: TRIAMTERENE-HCTZ 37.5-25MG 1 EACH TAB PO SCH (09:00)
== END 2023-01-04 16:43 | disposition home or self-care (01) | DRG 310 ==
LOC: EC 11:05 → 3SCARD 14:24
PROVIDERS: ADMIT Hospitalist; ATTEND Hospitalist
DX: I48.3 Typical atrial flutter (principal); I49.3 Ventricular premature depolarization; N40.0 Benign prostatic hyperplasia without lower urinary tract symptoms; Z71.3 Dietary counseling and surveillance; I10 Essential (primary) hypertension; I45.10 Unspecified right bundle-branch block; I47.1 Supraventricular tachycardia; I48.0 Paroxysmal atrial fibrillation; M19.90 Unspecified osteoarthritis, unspecified site; Z68.30 Body mass index [BMI] 30.0-30.9, adult; Z79.899 Other long term (current) drug therapy; Z87.828 Personal history of other (healed) physical injury and trauma; I65.29 Occlusion and stenosis of unspecified carotid artery; Z88.5 Allergy status to narcotic agent; Z79.82 Long term (current) use of aspirin
CPT/HCPCS: 36415; 71046; 80053; 83605; 83735; 84443; 84484; 85025; 85379; 85610; 85730; 93005; 94760; 96361; 96365; 96375; 99291

== ENCOUNTER 2023-02-18 08:51 | Day surgery (SDC) | payer MEDICARE ==
[2023-02-16 13:39] VITALS: BMI 31.0
[2023-02-18] MEDS ORDERED: SODIUM CHLORIDE 0.9% 1,000 ML IV ONE (10:45)
[2023-02-18] MEDS ORDERED: SUCCINYLCHOLINE CHLORIDE 200 MG/10 ML VIAL IV ONE (11:22)
[2023-02-18] MEDS ORDERED: ATROPINE SULFATE 0.4 MG/ML 1 ML VIAL ONE (11:22)
[2023-02-18] MEDS ORDERED: HEPARIN SODIUM,PORCINE 5,000 UNIT/ML 1 ML VIAL ONE (11:22)
[2023-02-18] MEDS ORDERED: PROPOFOL 10 MG/ML 20 ML VIAL IV ONE (11:22)
[2023-02-18] MEDS ORDERED: HEPARIN SODIUM,PORCINE 10,000 UNIT/ML 1 ML VIAL ONE (11:22)
[2023-02-18] MEDS ORDERED: LIDOCAINE 4% LTA KIT (4 ML) TOPICAL ONE (11:22)
[2023-02-18] MEDS ORDERED: ISOPROTERENOL 250 MCG/1.25 ML SYR IV ONE (11:22)
[2023-02-18] MEDS ORDERED: LIDOCAINE 1% INJ 10MG/ML (20 ML MDV) ONE (11:42)
[2023-02-18] MEDS ORDERED: HEPARIN SOD,PORK IN 0.45% NACL 25,000 UNIT in 0.45% NACL 1 250ML.BAG IV ONE (11:59)
[2023-02-18] MEDS ORDERED: LIDOCAINE 1% INJ 10MG/ML (20 ML MDV) SQ ONE (12:00)
[2023-02-18] MEDS ORDERED: IOPAMIDOL-370 100ML BTL INJ ONE (14:18)
[2023-02-18] MEDS ORDERED: HEPARIN SODIUM (1,000 UNIT/ML) 1,000 UNIT in SODIUM CHLORIDE 0.9% 1,000 ML IRRIGATION ONE (14:20)
[2023-02-18] MEDS ORDERED: ACETAMINOPHEN TAB 325 MG TAB PO PRN (15:26)
--- NOTE | 2023-02-18 15:31 | P.HPCAR ---
History of Present Illness This is Dr. Wills dictating an H/P on this patient The patient was interviewed and examined IMPRESSION / ASSESSMENT: Paroxysmal atrial fibrillation with RVR Paroxysmal atrial tachycardia with RVR with right bundle branch block aberrancy Hypertension PVCs, suppressed on flecainide Mild aortic stenosis Left anterior fascicular block Sick Sinus Syndrome Preserved LV size and systolic function on echo PLAN: A. fib ablation Diagnoses EP study to induce any atrial tachycardia and mapping and ablation according Continue with his HPI Patient was admitted to the hospital with atrial fibrillation with RVR and atrial tachycardia with a right bundle branch block. He denies any fever chills cough expectoration In the last few days with flecainide he has not had any palpitations ROS: No fever chills or rigors, no cough, phlegm or expectoration, no nausea, vomiting or diarrhea, no hematuria, dysuria, no musculoskeletal complaints, no strokes or seizures, no skin lesions. EXAMINATION: On examination his heart sounds are normal breath sounds are clear Blood pressures elevated Systolic ejection murmur. Explosiveness No JVD Mild bilateral lower extremity edema REVIEW OF LABS, ECG & MEDICAL DATA TSH normal Patient is on amlodipine losartan and flecainide as well as ELIQUIS Physical Exam Vitals: Intake and Output 02/18/23 02/18/23 02/18/23 06:59 14:59 22:59 Intake Total 799 Balance 799 Intake: IV 799 Past Medical History Past Medical History: Atrial Fibrillation, Atrial Flutter, Hearing Disorder / Deafness, Hyperlipidemia, Hypertension, Osteoarthritis (OA) Additional Past Medical History / Comment(s): HX PVCs. 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 Bilateral hearing aid use. History of Any Multi-Drug Resistant Organisms: None Reported Past Surgical History: Back Surgery Additional Past Surgical History / Comment(s): 1986 laminectomy, attempted cardiac ablation for PVC's, colonoscopies. Past Anesthesia/Blood Transfusion Reactions: No Reported Reaction Past Psychological History: No Psychological Hx Reported Smoking Status: Never smoker Past Alcohol Use History: None Reported Past Drug Use History: None Reported - Past Family History Father Family Medical History: Cancer Mother Family Medical History: Cancer Physical Examination Intake and Output 02/18/23 02/18/23 02/18/23 06:59 14:59 22:59 Intake Total 799 Balance 799 Intake: IV 799 Results Current Medications Generic Name Dose Route Start Last Admin Trade Name Freq PRN Reason Stop Dose Admin Acetaminophen 650 mg 02/18/23 15:26 Acetaminophen Tab 325 Mg Tab PO 03/20/23 15:27 Q6HR PRN Mild Pain (Scale 1 to 3) Amlodipine Besylate 5 mg 02/19/23 09:00 Amlodipine 5 Mg Tab PO 03/21/23 09:01 DAILY CHRISTEN Apixaban 5 mg 02/18/23 21:00 Apixaban 5 Mg Tab PO 03/20/23 21:01 BID CHRISTEN Protocol Lactated Ringer's 1,000 mls @ 20 mls/hr 02/18/23 07:36 Lactated Ringers IV 03/20/23 07:37 .Q24H CHRISTEN Acetaminophen 1,000 mg/ IV 100 mls @ 400 mls/hr 02/18/23 15:26 Solution IVPB 02/18/23 15:40 ONCE ONE Losartan Potassium 50 mg 02/18/23 21:00 Losartan 50 Mg Tab PO 03/20/23 21:01 HS CHRISTEN Sodium Chloride 12 ml 02/18/23 15:26 Sodium Chloride 0.9% Flush 10 Ml Syringe IV 03/20/23 15:27 Q12HR PRN Line Flush Tamsulosin HCl 0.4 mg 02/19/23 09:00 Tamsulosin 0.4 Mg Cap.Er.24h PO 03/21/23 09:01 DAILY CHRISTEN Intake and Output 02/18/23 02/18/23 02/18/23 06:59 14:59 22:59 Intake Total 799 Balance 799 Intake: IV 799
--- NOTE | 2023-02-18 15:38 | P.EPPROC ---
- EP Procedure Note Electrophysiology Procedure Note: PROCEDURE A. fib ablation with PVI and left atrial roof ablation DIAGNOSIS Paroxysmal Atrial fibrillation, symptomatic, refractory to therapy Paroxysmal atrial tachycardia with RVR, very symptomatic, right bundle branch block aberrancy RESULT No left atrial appendage mass seen on intracardiac echo Mildly thickened pericardium on intracardiac echo Successful A. fib ablation/pulmonary vein isolation of all veins using cryo- ablation Complete entrance block in all 4 veins confirmed No evidence for phrenic nerve injury Successful left atrial roof line Esophageal deflection YES, extreme left sided esophagus Diagnostic EP study thereafter on high-dose Isuprel-induced an atrial tachycar martine with a cycle length of about 230 ms, Spontaneous termination We could not reinduce this tachycardia thereafter PROCEDURE DETAILS Written informed consent prior to procedure. Patient brought to the EP lab. General anesthesia given. Heparin administered. A city maintained above 300 seconds Both groins prepped and draped per protocol and venous sheaths placed. Esophagus intubated, circa catheter for temperature monitoring an endoscope for possible esophageal deflection. Phrenic nerve monitoring performed. Esophageal temperature monitoring performed. Esophageal deflection performed if circa catheter overlapping with the balloon or circa temperature less than 27.5C Intracardiac echocardiography performed. Pericardium evaluated. Left atrial appendage evaluated. Left atrium evaluated along with pulmonary veins Transseptal catheterization performed under fluoroscopic guidance and intracardiac echo guidance Cryoablation sheath exchanged, balloon catheter along with achieve catheter placed in the left atrium. Pulmonary veins isolated in the following sequence: Left superior pulmonary vein followed by left inferior pulmonary vein, followed by right inferior pulmonary vein and lastly right superior pulmonary vein. Phrenic nerve stimulation along with capture thresholds within the SVC and right superior pulmonary vein to identify the phrenic nerve proximity to the cryo- balloon. Pulmonary veins isolated and confirmed with entrance and exit block. Phrenic nerve integrity confirmed at the end of the procedure Ablation of the left atrial roof performed with sequential cryoablation lesions from the left superior to the right superior pulmonary veins. Ablation of the electrograms confirmed. No electrograms noted in the left atrial roof, complete line of block Diagnostic catheters for the high right atrium, His bundle, coronary sinus placed. LA and RA pressures recorded RA pressure: 10/5/70 LA pressure: 13/2/8 Diagnostic EP study with coronary sinus pacing and recording Baseline measurements: Sinus cycle length: 166 ms, IA interval 180 ms, QRS 86 ms, QT 446 ms AH 76 and HV 65 ms Sinus recovery times at 600 ms were 930 ms AV node Wenckebach block greater than 50 ms Suggestion of slow pathway at 380 ms with a right bundle branch block aberrancy On high-dose Isuprel atrial tachycardia was induced at 600/420 ms, when pacing from the high right atrium The twelve-lead EKG did not suggest typical atrial flutter Thereafter full EP study was performed on and off Isuprel with pacing from the coronary sinus, multiple different poles, up to triple extrastimuli as well as burst stimulation Sustained atrial tachycardia could not be induced Very brief nonsustained bursts of atrial tachycardia induced, concentric activation but then there were 2 different morphologies Therefore no mapping and no further atrial tachycardia ablation performed because of inability to induce any sustained tachycardia Venous sheaths were removed and hemostasis assured with a closure device. Patient extubated and transferred to recovery Increase procedural time Apart from paroxysmal atrial fibrillation the patient also had a diagnosis of atrial tachycardia with RVR with a right bundle branch block the syncope We will obtain reduce the atrial tachycardia only once on high-dose Isuprel with atrial extra stimulation from the lateral right atrial Following that he will not able to induce tachycardia any further other than very brief nonsustained runs pressure mostly concentric activation A full detailed EP study to induce the tachycardia was performed while mapping catheter was placed in the left atrium waiting to acquire the activation patterns However since tachycardia was not inducible, no mapping and ablation was performed for the atrial tachycardia This to an extended period of time after successful A. fib ablation PROCEDURES PERFORMED Diagnostic EP study CS pacing and recording Left and right transseptal catheterization Catheter the mapping of the tachycardia Intracardiac echocardiography Pulmonary vein isolation with transseptal and comprehensive EPS, [id number] Extended procedure duration Drug infusion, +[id number] Left atrial roof line, +[id number]
[2023-02-18] MEDS ORDERED: ACETAMINOPHEN IV (For NPO) 1,000 MG in EMPTY BAG 1 BAG IVPB ONE (18:00)
[2023-02-18] MEDS: LACTATED RINGERS 1,000 ML IV SCH ×2 (18:50→19:30)
[2023-02-18] MEDS: APIXABAN 5 MG TAB PO SCH (19:26)
[2023-02-18] MEDS ORDERED: LOSARTAN 50 MG TAB PO SCH (21:00)
[2023-02-19 02:34] VITALS: TEMP 98.2
--- NOTE | 2023-02-19 07:27 | P.DS ---
Providers Attending physician: Mor Wills Primary care physician: [facility] Course: Patient has a sore throat and pleuritic chest discomfort when he takes a deep breath Otherwise is resting comfortably in bed Normal heart rates normal rhythm on telemetry Twelve-lead EKG is normal no ST segment abnormalities Heart sounds S1 and S2 are normal soft systolic murmur Breath sounds are clear Groins reveal well no hematoma No JVD Impression Paroxysmal atrial fibrillation with RVR, symptomatic Status post PVI and left atrial roof line Paroxysmal atrial tachycardia We were able to induce an atrial tachycardia after atrial fibrillation only once on Isuprel and atrial extra stimulation from the high right atrium Thereafter we could not reinduce it to permit mapping of the tachycardia Intracardiac echo revealed evidence of pericarditis Plan Colchicine 0.6 mg by mouth daily for 1-2 weeks for pleuritic chest pain control Continue ELIQUIS for at least 3 months uninterrupted before any surgical procedure Patient was instructed not to stop ELIQUIS prior to that for any reason unless it's in the emergency Continue amlodipine and losartan for blood pressure control I will hold flecainide for about a month to see if he has any atrial tachycardia. This may have been proarrhythmia secondary to flecainide or may not have been related to flecainide Plan - Discharge Summary Discharge Rx Participant: No New Discharge Prescriptions: Discontinued Flecainide [Tambocor] 50 mg PO Q12HR #180 tab No Action Tamsulosin [Flomax] 0.4 mg PO DAILY Losartan [Cozaar] 50 mg PO HS #90 tab Apixaban [Eliquis] 5 mg PO BID #60 tab amLODIPine [Norvasc] 5 mg PO DAILY #90 tab Discharge Medication List Tamsulosin [Flomax] 0.4 mg PO DAILY 12/15/21 [History] Apixaban [Eliquis] 5 mg PO BID #60 tab 01/04/23 [Rx] Losartan [Cozaar] 50 mg PO HS #90 tab 01/04/23 [Rx] amLODIPine [Norvasc] 5 mg PO DAILY #90 tab 01/04/23 [Rx] Follow up Appointment(s)/Referral(s): Mor Wills MD [STAFF PHYSICIAN] - 1 Week Activity/Diet/Wound Care/Special Instructions: Post EP study - Ablation instructions 1. Keep access sites dry for 2 days. 2. No heavy lifting or straining for 2 days. 3. Avoid bending the hips repeatedly for 2 days. 4. You may go up and down stairs slowly Call if the following is noted 1. Bleeding, increasing swelling or pain at the access sites. 2. Increasing chest discomfort, especially upon taking a deep breath. 3. Increasing shortness of breath, at rest or with exertion. 4. Undue cough / phlegm 5. Difficulty or pain while swallowing. 6. Pain or change in color in the extremities. 7. Fever, chills, rigors. 8. Increasing headache or neurologic symptoms. 9. Dizziness, fainting, palpitations Hold flecainide for now Continue antihypertensive therapy and ELIQUIS no surgery for three months Discharge Disposition: HOME SELF-CARE
[2023-02-19] MEDS ORDERED: COLCHICINE 0.6 MG EACH PO ONE (07:30)
[2023-02-19] MEDS: APIXABAN 5 MG TAB PO SCH (07:57)
[2023-02-19 07:59] VITALS: BP 132/79; PULSE 86; RESP 16
[2023-02-19] MEDS ORDERED: amLODIPine 5 MG TAB PO SCH (09:00)
[2023-02-19] MEDS ORDERED: TAMSULOSIN 0.4 MG CAP.ER.24H PO SCH (09:00)
== END 2023-02-19 12:28 | disposition home or self-care (01) ==
LOC: CATHEP 08:51 → 6NMEDSUR 17:08 → CATHEP 02-19 12:28
PROVIDERS: ATTEND Internal Medicine Clinical Cardiac Electrophysiology
DX: I48.0 Paroxysmal atrial fibrillation (principal); I45.10 Unspecified right bundle-branch block; I47.1 Supraventricular tachycardia; I10 Essential (primary) hypertension; I35.0 Nonrheumatic aortic (valve) stenosis; I49.5 Sick sinus syndrome; E78.5 Hyperlipidemia, unspecified; Z79.899 Other long term (current) drug therapy
CPT/HCPCS: 93623; 93656; 93657; 86900; 86901; 84443; 86850; C1759; C1894 ×2; C1769 ×3; C1760; C1730 ×2; C1731; C1893; C1733; C1766; J0330; J0461; J1644 ×4; J2001; J0131; J2704; Q9967

== ENCOUNTER 2023-05-19 13:27 | Day surgery (SDC) | payer MEDICARE ==
[2023-05-14 15:55] VITALS: BMI 31.0
[~2023-05-19 13:27] MED LIST changes: +ACETAMINOPHEN TAB 500 MG TAB PO PRN; +DEXAMETHASONE SOD PHOSPHATE 10 MG/ML 1 ML VIAL IV PRN; +DEXAMETHASONE SOD PHOSPHATE 4 MG/ML 1 ML VIAL IV ONE; +DOCUSATE 100 MG CAP PO PRN; +FAMOTIDINE 20 MG/2 ML VIAL IVP PRN; +HYDROmorphone 0.5 MG/0.5 ML SYRINGE IVP PRN; +KETOROLAC 15 MG/ML 1 ML VIAL IVP PRN; -LACTATED RINGERS 1,000 ML IV SCH; +LIDOCAINE 1% (10MG/ML) FOR IV START INTRADERMA PRN; +MIDAZOLAM 2 MG/2 ML VIAL IV PRN; +ONDANSETRON 4 MG/2 ML VIAL IVP PRN; +ROPIVACAINE/EPI/CLONIDINE/KET 50 ML SYRINGE MISCELLANE PRN; -SODIUM CHLORIDE 0.9% 1,000 ML IV SCH; +TRANEXAMIC 1,000 MG/100ML-NACL 1,000 MG in SALINE 1 100ML.BAG IV PRN; +TRANEXAMIC 1,000 MG/100ML-NACL 1,000 MG in SALINE 1 100ML.BAG IVPB PRN; +fentaNYL (PF) 50 MCG/ML 2 ML AMP IVP PRN; +oxyCODONE ER 10 MG TAB.ER.12H PO PRN
[2023-05-19] MEDS ORDERED: MIDAZOLAM 2 MG/2 ML VIAL IVP ONE ×2 (14:33→14:38)
--- NOTE | 2023-05-19 14:58 | P.ANPRN ---
Procedure Note - Anesthesia - Nerve Block Performed Right Adductor Canal Single Time Out Performed: Yes (143) Date of Procedure: 05/19/23 Procedure Start Time: 14:35 Procedure Stop Time: 14:45 Location of Patient: PreOp Indication: Acute Post-Operative Pain, Requested by Surgeon Sedation Type: Sedate with meaningful contact maintained Preparation: Sterile Prep Position: Supine Catheter: None Needle Types: Pajunk Needle Gauge: 21 Ultrasound used to visualize needle placement: Yes Ultrasound used to observe medication spread: Yes Injectate: 0.5% Ropivacaine (see comment for volume) (21 mL of block solution containing 10 ML of 0.5% ropivacaine mixed with 10 ML of preservative-free normal saline, mixed with 40 MG of dexamethasone) Blood Aspirated: No Pain Paresthesia on Injection Noted: No Resistance on Injection: Normal Image Stored and Saved: Yes Events: Uneventful and Well Tolerated Right iPack Single Time Out Performed: Yes (143) Date of Procedure: 05/19/23 Procedure Start Time: 14:35 Procedure Stop Time: 14:45 Location of Patient: PreOp Indication: Acute Post-Operative Pain, Requested by Surgeon Sedation Type: Sedate with meaningful contact maintained Preparation: Sterile Prep Position: Supine Catheter: None Needle Types: Pajunk Needle Gauge: 21 Ultrasound used to visualize needle placement: Yes Ultrasound used to observe medication spread: Yes Injectate: 0.5% Ropivacaine (see comment for volume) (20 mL of block solution containing 10 ML of 0.5% ropivacaine mixed with 10 ML of preservative-free normal saline) Blood Aspirated: No Pain Paresthesia on Injection Noted: No Resistance on Injection: Normal Image Stored and Saved: Yes Events: Uneventful and Well Tolerated
[2023-05-19] MEDS: LACTATED RINGERS 1,000 ML IV SCH ×3 (15:03→19:40)
[2023-05-19] MEDS ORDERED: DEXAMETHASONE SOD PHOSPHATE 4 MG/ML 1 ML VIAL ONE (15:24)
[2023-05-19] MEDS ORDERED: TRANEXAMIC 1,000 MG/100ML-NACL PREMIX BAG ONE (15:24)
[2023-05-19] MEDS ORDERED: SODIUM CHLORIDE 0.9% (PF) 10 ML VIAL ONE (15:24)
[2023-05-19] MEDS ORDERED: HYDROmorphone (PF) 1 MG/ML ONE (15:24)
[2023-05-19] MEDS ORDERED: ROPIVACAINE 5 MG/ML 30 ML VIAL ONE (15:24)
[2023-05-19] MEDS ORDERED: LIDOCAINE 1% INJ 10MG/ML (20 ML MDV) ONE (15:24)
[2023-05-19] MEDS ORDERED: fentaNYL (PF) 50 MCG/ML 2 ML AMP ONE (15:24)
[2023-05-19] MEDS ORDERED: ROCURONIUM 10 MG/ML (5 ML VIAL) IV ONE (15:24)
[2023-05-19] MEDS ORDERED: PROPOFOL 10 MG/ML 20 ML VIAL IV ONE (15:24)
[2023-05-19] MEDS ORDERED: NEOSTIGMINE 1 MG/ML 10 ML VIAL ONE (15:24)
[2023-05-19] MEDS ORDERED: GLYCOPYRROLATE 0.2 MG/ML 2 ML VIAL ONE (15:24)
[2023-05-19] MEDS ORDERED: SUCCINYLCHOLINE CHLORIDE 200 MG/10 ML VIAL IV ONE (15:24)
[2023-05-19] MEDS ORDERED: LACTATED RINGERS 1,000 ML IV ONE (17:11)
[2023-05-19] MEDS ORDERED: HYDROmorphone 0.5 MG/0.5 ML SYRINGE IVP PRN ×3 (17:40)
[2023-05-19] MEDS ORDERED: ONDANSETRON 4 MG/2 ML VIAL IVP PRN (17:40)
[2023-05-19] MEDS ORDERED: hydrOXYzine pamoate 25 MG CAP PO PRN (17:40)
[2023-05-19] MEDS ORDERED: HYDROcodone/APAP 5-325MG 1 EACH TAB PO PRN ×2 (17:40)
[2023-05-19] MEDS ORDERED: NALOXONE 0.4 MG/ML 1 ML VIAL IV PRN (17:40)
--- NOTE | 2023-05-19 17:43 | P.OP ---
Date of Procedure: 05/19/23 Preoperative Diagnosis: 1. Severe right knee osteoarthritis 2. Atrial fibrillation on Eliquis 3. Coronary artery disease Postoperative Diagnosis: Same Procedure(s) Performed: 1. Right total knee arthroplasty 2. Computer assisted musculoskeletal navigation using CT/MRI images Implants: 1. [employer] CR Femur Size #5 2. [employer] Belding Tibial Base Size #5 3. [employer] CS poly Size #5, 9-mm 4. [employer] all poly patella, Size #35 Anesthesia: HIRO, regional Surgeon: David Jordan [employer] Employee #1: Diane Seymour Estimated Blood Loss (ml): 100 IV fluids (ml): 950 Pathology: none sent Condition: stable Disposition: PACU Indications for Procedure: I met with the patient preoperatively in the office setting and discussed treatment of their symptomatic knee arthritis. They failed a long course of nonsurgical treatment and elected to proceed with an elective total knee replacement. I discussed the potential risks and complications at length and gave them ample time to ask questions. Risks discussed included: risks from anesthesia, superficial site surgical infection, acute and/or chronic periprosthetic joint infection, delayed wound healing, drainage, wound necrosis, instability, stiffness, stiffness requiring manipulation and/or revision surgery, damage to local blood vessels or nerves, aseptic loosening of the implants, extensor mechanism issues including disruption, patellar maltracking, avascular necrosis etc., continued or worsened knee pain, generalized dissatisfaction with surgical outcome, need for revision surgery, an inability to regain preinjury level of function, DVT, PE, other medical complications, and possibly loss of life or limb. The patient voiced their understanding that while these are the most common complications other less common complications are possible. They provided both their verbal and written consent to go forward with surgery. Operative Findings: There were severe arthritic changes throughout all 3 compartments with full- thickness cartilage loss and exposed subchondral bone Description of Procedure: The patient was identified in preoperative holding and the correct operative extremity was verified and marked with a marker. I reviewed the consent form with the patient at length. All of their questions were answered. The patient was given a block by anesthesia. They were then brought back to the operating room. They were transferred onto the operating room table where a general anesthetic, preoperative antibiotics, and tranexamic acid were administered by anesthesia. A tourniquet was applied to the proximal aspect of the operative extremity. The contralateral extremity was padded under the heel and secured to the operating room table with a nonsterile blue towel and tape. The ipsilateral arm was carefully draped across the patient's chest and secured with a pillow and foam. A post was applied over the lateral aspect of the ipsilateral thigh and a bolster was placed under the ipsilateral foot. I verified that the operative extremity was stable and the knee was flexed to 90. The operative extremity was then placed in a leg medina, nonsterile drapes were applied, and the extremity was prepped and draped sterilely in the standard sterile fashion. Prior to starting surgery timeout was performed identifying the correct patient, operative extremity, and procedure. The leg was then elevated, exsanguinated with an Esmarch bandage, and the tourniquet was inflated. An anterior midline incision was made sharply with a scalpel. Once I had dissected deep to the superficial fascial layer medial and lateral flaps were elevated. A medial parapatellar arthrotomy was created. Upon opening the knee joint there were diffuse arthritic changes in all 3 compartments. The anterior horn of the medial meniscus were sharply released and a medial release was performed around the posterior medial corner of the knee to facilitate retractor placement. The fat pad was excised with electrocautery. The patella was found to be severely arthritic and a provisional cut was made with a sagittal saw to facilitate mobilization of the extensor mechanism during the procedure. Remnants of the ACL and PCL were then excised from the notch. 4 mm pins were then placed within the incision in the medial distal femur and proximal tibia. Arrays were applied to the pins and I verified they were completely tightened. The knee was then registered with the Epigami robot and manipulations in implant position were made to balance the knee and opitmize implant position. Using the Shyam robotic saw all cuts were made in accordance with our plan. After all bony fragments had been removed the cuts were verified with the planar probe. The tibia was then subluxed forward and sized. The knee was brought into flexion and a lamina gasket inspector was placed to allow removal of the meniscal remnants both medially and laterally as well as posterior osteophytes. Local anesthetic was then infiltrated around the joint capsule. Trial implants were then placed within the knee. Range of motion and collateral ligament tension was then evaluated. Adjustments in implant size and position were then made accordingly. Once the knee was felt to be appropriately balanced the Shyam pins were removed. The patella was then recut, sized, and punched. A trial patellar button was then placed. With the trial components in place, the patella tracked midline. The femur was then drilled and the trial component removed. The trial tibial component was then appropriately rotated, pinned, and prepared for the keel. All trial components were then removed from the knee. The knee was thoroughly irrigated with pulsatile lavage. Cement was prepared via vacuum mixing in a bowl on the back table. I then hand pressurized cement into the femur and tibia and placed the implants beginning with the tibial base tray and poly liner, femoral component, and finally the patellar button. All extruded cement was removed including from the pin sites. Once the cement had hardened the knee was evaluated one final time with the final polyethylene liner in place. The knee had full extension and flexion and felt stable to varus and valgus stress throughout the arc of motion. The tourniquet was released and with the tourniquet down the patella tracked midline. All bleeders were controlled with electrocautery. The knee was then soaked for 3 minutes with a dilute Betadine soak. The knee was thoroughly irrigated using 3 L of sterile saline and pulsa tile lavage. A deep drain was placed. The extensor mechanism was then reapproximated using pop off Vicryl sutures followed by a running barbed suture. The knee was then closed in layers with a 0 strata fix for the deep fascial layer, 2-0 strata fix for the superficial subcutaneous layer and Monocryl and Steri-Strips for the skin. A sterile dressing and drain sponge were applied. I verified that all instrument, sponge, and sharp counts were correct. The patient was then transferred off the operating room table, extubated, and brought to recovery having tolerated the procedure well. Diane Seymour PA-C was required as a skilled assistant manager retail due to the complexity of the procedure for patient positioning, draping, retraction, placement of hardware, and closure of wound. PLAN: The patient can weight-bear as tolerated on the operative extremity. DVT prophylaxis - the patient takes Eliquis at baseline and we can resume this for postoperative DVT prophylaxis. Follow-up in the office in 2 weeks for wound check and x-rays of the knee including an AP and lateral.
--- NOTE | 2023-05-19 18:10 | XR ---
EXAMINATION TYPE: XR knee limited RT DATE OF EXAM: 05/19/2023 CLINICAL HISTORY: Right knee pain and arthritis status post total knee replacement. TECHNIQUE: Portable AP and crosstable lateral views of the right knee are obtained immediately posto peratively. COMPARISON: Bilateral knee x-ray December 15, 2021 FINDINGS: Metallic hardware from total right knee arthroplasty is seen and appears satisfactory in a lignment and position. There is evidence of recent surgery with diffuse subcutaneous gas and percuta neous suprapatellar surgical drain noted. IMPRESSION: METALLIC HARDWARE FROM TOTAL RIGHT KNEE ARTHROPLASTY IS SATISFACTORY IN ALIGNMENT.
[2023-05-19] MEDS ORDERED: SENNOSIDES-DOCUSATE SODIUM 1 EACH TAB PO SCH (21:00)
[2023-05-20 03:50] VITALS: RESP 18
[2023-05-20] MEDS: LACTATED RINGERS 1,000 ML IV SCH (06:46)
[2023-05-20 08:06] VITALS: BP 133/82; PULSE 72; TEMP 97.8
--- NOTE | 2023-05-20 08:19 | P.DS ---
Providers Expected date of discharge: 05/20/23 Attending physician: David Jordan Consults: 05/19/23 17:40 Consult Physician Routine Consulting Provider: Francisco Spears Consult Reason/Comments: medical management Do you want consulting provider notified?: Yes Primary care physician: Mendel Chavez [facility] Course: This is an 82-year-old male who has been followed in our office by Dr. Jordan for continued complaints of right knee pain due to right knee osteoarthritis. Treatment options were discussed, and patient elected to undergo a right total knee arthroplasty. Patient was seen pre-operatively by Dr. Chavez, Dr. Wills and cleared for surgery. Patient underwent a right total knee arthroplasty on 05/19/[address] Jordan. The procedure was performed without complication or sequelae. The patient is doing fairly well postoperatively. Vital signs and labs are stable on postoperative day #1. Patient was examined bedside this morning with Dr. Jordan. Patient states he is overall doing well and the pain in the right knee is well-controlled. He has been ambulating with a walker with minimal assistance. Patient will work with physical therapy prior to returning home. Patient is comfortable being discharged home today. Patient has no new complaints this morning. On examination, the patient is sitting up in bed in no apparent distress. He is alert and orientated 3. On inspection of the right knee, there is a clean, dry, intact surgical dressing in place with no bleeding or drainage through the dressing. Patient has good strength and ROM of the right ankle and toes. Motor and sensory function is intact of the right lower extremity. The dorsalis pedis pulse is easily palpable, the right lower extremity is warm and well perfused with brisk capillary refill. Calf is soft and non-tender to palpation. Hemovac drain removed bedside this morning during examination. Patient is discharged home with home health care today in good condition, pending medical clearance. Patient will follow-up in the office at [facility] in 2 weeks. Please see med rec for accurate list of discharge medication. Plan - Discharge Summary Discharge Rx Participant: Yes New Discharge Prescriptions: New Docusate [Colace] 100 mg PO BID #60 capsule HYDROcodone/APAP 5-325MG [[place] 5-325] 1 - 2 tab PO Q6HR PRN 7 Days #32 tab PRN Reason: Pain Omeprazole 40 mg PO DAILY 30 Days #30 cap No Action Tamsulosin [Flomax] 0.4 mg PO DAILY Apixaban [Eliquis] 5 mg PO BID #60 tab amLODIPine BESYLATE [Amlodipine Besylate] 10 mg PO QAM Losartan Potassium [Cozaar] 100 mg PO HS Discharge Medication List Tamsulosin [Flomax] 0.4 mg PO DAILY 12/15/21 [History] Apixaban [Eliquis] 5 mg PO BID #60 tab 01/04/23 [Rx] Losartan Potassium [Cozaar] 100 mg PO HS 05/14/23 [History] amLODIPine BESYLATE [Amlodipine Besylate] 10 mg PO QAM 05/14/23 [History] Docusate [Colace] 100 mg PO BID #60 capsule 05/20/23 [Rx] HYDROcodone/APAP 5-325MG [[place] 5-325] 1 - 2 tab PO Q6HR PRN 7 Days #32 tab 05/20/23 [Rx] Omeprazole 40 mg PO DAILY 30 Days #30 cap 05/20/23 [Rx] Follow up Appointment(s)/Referral(s): David Jordan MD [Medical Doctor] - 2 Weeks Activity/Diet/Wound Care/Special Instructions: Weight bear to tolerance on operative extremity with a walker. Keep operative dressing in place until follow-up in the office. Call the office if dressing becomes saturated or falls off. May shower over dressing. Take pain medications as needed. Resume Eliquis for DVT prophylaxis. Follow-up in the office in two weeks at [facility]. Call the office with any questions or concerns, Discharge Disposition: HOME WITH HOME HEALTH SERVICES
[2023-05-20] MEDS ORDERED: APIXABAN 5 MG TAB PO SCH (09:00)
[2023-05-20] MEDS ORDERED: TAMSULOSIN 0.4 MG CAP.ER.24H PO SCH (09:00)
[2023-05-20 09:10] LABS: Basophils # (A) 0.02 X 10*3/uL (0.00-0.10); Basophils % (A) 0.1 %; Eosinophils # (A) 0 X 10*3/uL (0.04-0.35); Eosinophils % (A) 0 %; HCT 39.4 % (39.6-50.0); HGB 13.3 d/dL (13.0-17.0); Lymphocytes # (A) 0.84 X 10*3/uL (0.90-5.00); Lymphocytes % (A) 4.5 %; MCHC 33.8 d/dL (32.0-37.0); MCV 85.8 FL (80.0-97.0); Mean Platelet Volume 10.4 FL (9.5-12.2); Monocytes # (A) 0.61 X 10*3/uL (0.20-1.00); Monocytes % (A) 3.3 %; NRBC Per 100 WBC 0 X 10*3/uL (0.00-0.01); Neutrophils # (A) 16.99 X 10*3/uL (1.80-7.70); Neutrophils % (A) 91.4 %; Platelet Count 245 X 10*3/uL (140-440); RBC 4.59 X 10*6/uL (4.40-5.60); WBC 18.59 X 10*3/uL (4.50-10.00)
[2023-05-20] MEDS ORDERED: amLODIPine 10 MG TAB PO SCH (09:30)
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
[2023-05-20] MEDS ORDERED: LOSARTAN 50 MG TAB PO SCH (21:00)
== END 2023-05-20 14:00 | disposition home health service (06) ==
LOC: OR 13:27 → 4SSUR 17:27 → OR 05-20 14:00
PROVIDERS: ATTEND Orthopaedic Surgery
DX: M17.0 Bilateral primary osteoarthritis of knee (principal); I48.20 Chronic atrial fibrillation, unspecified; I48.92 Unspecified atrial flutter; I25.10 Atherosclerotic heart disease of native coronary artery without angina pectoris; I10 Essential (primary) hypertension; N40.0 Benign prostatic hyperplasia without lower urinary tract symptoms; E78.5 Hyperlipidemia, unspecified; H91.90 Unspecified hearing loss, unspecified ear; Z79.899 Other long term (current) drug therapy; Z85.828 Personal history of other malignant neoplasm of skin; Z79.01 Long term (current) use of anticoagulants; Z88.5 Allergy status to narcotic agent; Z88.6 Allergy status to analgesic agent
CPT/HCPCS: 0055T; 27447; S2900; 64447; 64999; 85025